=== PATIENT | male | born 1950 | race Caucasian/White ===

== ENCOUNTER 2023-10-15 12:23 | Outpatient (REF) | payer BC, SELFPAY ==
[2023-10-15 14:14] LABS: Anion Gap 13 (12-20); Blood Urea Nitrogen 26 mg/dL (9-16); Calcium 9.8 mg/dL (8.4-10.2); Carbon Dioxide 29 mmol/L (22-29); Chloride 101 mmol/L (96-108); Estimated Glomerular Filt Rate > 60; Glucose Random 93 mg/dL (60-115); Potassium 4.3 mmol/L (3.3-5.1); Sodium 139 mmol/L (135-145)
[2023-10-15 14:25] LABS: Syphilis Screen Nonreactive (Nonreactive)
[2023-10-15 14:40] LABS: Folate 13.3 ng/mL (> or = 4.0); Vitamin B12 543 pg/mL (200-900)
[2023-10-15 14:59] LABS: Erythrocyte Sedimentation Rate 7 MM/HR (0-15)
[2023-10-16 22:29] LABS: Lyme Abs Screen <0.90 index
[2023-10-18 11:48] LABS: IgA 149 mg/dL (70-320); IgG 1087 mg/dL (600-1540); IgM 79 mg/dL (50-300)
== END 2023-10-15 12:24 | disposition home or self-care (01) ==
LOC: HO.LAB 12:23
PROVIDERS: Visit Provider Psychiatry & Neurology Neurology
DX: G62.9 Polyneuropathy, unspecified (principal)
CPT/HCPCS: 36415; 80048; 82607; 82746; 82784; 85652; 86334; 86617; 86618; 86780

== ENCOUNTER 2023-11-04 09:35 | Emergency (ER) | payer BC, SELFPAY ==
[2023-11-04 09:57] VITALS: BP 151/85; PULSE 91; RESP 18; TEMP 36.6; O2SAT 95; BMI 29.8
[2023-11-04 10:22] LABS: Appearance Urine Clear; Color Urine Yellow; Glucose Urine UA Negative (Negative); Leukocyte Esterase Urine Small (1+) (Negative); Nitrite Urine Negative (Negative); Specific Gravity - Urine 1.015 (1.005-1.025); UMIC TRIGGER UACC YES; Urine Blood Trace (Negative); Urine Ketones Negative (Negative); Urine Protein Negative (Neg-Trace)
[2023-11-04 10:24] LABS: Bacteria Urine None Seen (None Seen); Hyaline Casts Urine 0-2 /LPF (0-2); Squamous Epithelial Cell Urine 0-2 /HPF (0-2); UACC Culture Trigger YES
[2023-11-04 10:56] LABS: Influenza A PCR NEGATIVE (Negative); Influenza B PCR NEGATIVE (Negative); Resp Syncy Virus RNA Qual PCR NEGATIVE (Negative); SARS COV2 PCR INHOUSE NEGATIVE (Negative)
--- NOTE | 2023-11-04 13:42 | ED.GENADULT ---
HPI - General Adult General Chief complaint: General Medical Stated complaint: Bladder infection Time Seen by Provider: 11/04/23 13:22 Source: patient and family () Mode of arrival: ambulatory Limitations: no limitations History of Present Illness HPI narrative: 73 year old male with no signfiicant pmhx presents to the ED today for evaluation of body aches, chills, and urinary frequency x2 days. No documented temperature at home. Has not taken anything at home for this. Reports similar symptoms in the past when he was diagnosed with a urinary tract infection. Denies fever, chills, ear pain, sore throat, difficulty swallowing. chest pain, shortness of breath, wheezing, hematuria, dysuria, abdominal pain or flank pain. Denies sick contacts. No history of kidney stones. No history of BPH. Related Data Previous Rx's Medication Instructions Recorded cephalexin 500 mg capsule 500 mg PO BID 7 days #14 caps 11/04/23 Allergies Allergy/AdvReac Type Severity Reaction Status Date / Time No Known Allergies Allergy Verified 11/04/23 09:56 Review of Systems Review of Systems: Constitutional: No fever, +chills, No fatigue, night sweats, weight changes ENT/Mouth: No ear pain, hearing loss, nasal congestion, sinus pain, rhinorrhea, sore throat Eyes: No eye pain, swelling, redness, vision changes, discharge Cardio: No chest pain, palpitations, LE, orthopnea, peripheral edema Pulm: No SOB, cough, sputum, wheezing, dyspnea, hemoptysis GI: No nausea, vomiting, hematemesis, abdominal pain, diarrhea, constipation, hematochezia, melena : No irregular bleeding, dysuria, +frequency, No urgency, hesitancy, hematuria, flank pain, urinary flow changes, urinary incontinence or retention MSK: No back pain, neck pain, joint pain, +myalgias Skin: No lesions, rashes Neuro: No weakness, numbness, paresthesias, LOC, dizziness, headache All other systems reviewed and are negative. [facility] Past Medical History Attestation statement: The following information was validated with the patient. Source: old records reviewed and nursing notes reviewed Social History Social History Advance Directives: No Advance Directives Information Provided: No Physical Exam ED Vital Signs: Vital Signs - 24 hr 11/04/23 09:57 Temperature 97.8 F Pulse Rate 91 Respiratory Rate 18 Blood Pressure 151/85 H Pulse Oximetry 95 Oxygen Delivery Method Room Air BMI result Body Mass Index 29.8 Vital signs stable, afebrile. Const General: cooperative, healthy appearing, comfortable, no acute distress, alert and awake Orientation/consciousness: patient oriented x3 Limitations: no limitations HENMT Head: Yes normal to inspection Ears: hearing grossly normal bilaterally, external ears normal, TM's normal bilaterally, EAC's normal, mastoids normal and no periauricular adenopathy General nose exam: Normal external nose present, Normal nares present and No nasal discharge present Face and sinus: Yes normal facial exam and Yes sinuses nontender Mouth: Normal oral and palatal mucosa present Eyes General: appearance normal, both eyes and all related structures Conjunctivae: conjunctivae normal Sclerae: sclerae normal Pupils: Equal, round and reactive pupils present EOM: EOMs intact bilaterally Neck Neck: Yes normal visual inspection, Yes full ROM, Yes no lymphadenopathy and Yes no meningeal signs Resp Effort & Inspection: normal respiratory effort Auscultation: clear to auscultation bilaterally Cardio Rate: regular rate Rhythm: regular rhythm GI Inspection: Yes normal to inspection Palpation (GI): Soft to palpation, nontender, no guarding and no splenomegaly Auscultation: normal bowel sounds Other: + no CVAT bilaterally Back/Spine/Pelvis Other: Strength 5/5 intact throughout.?No saddle anesthesia.?Sensation intact to light touch.?Neurovascular intact distally.? Skin General skin exam: no rashes or lesions noted Neuro General: patient oriented x3, gait normal, moves all extremities and no meningeal signs Cranial nerves: Yes Equal, round and reactive pupils present Extrem General: Yes normal to inspection and Yes full ROM Course Course Course Narrative: 1350-- patient tested negative for COVID, flu, RSV. Urine showing infection. Informed patient and patient's of results. Symptoms are most consistent with a urinary tract infection. There is no concern for obstructive uropathy or kidney infection at this time. Will send cephalexin to patient's pharmacy to treat UTI. Patient has remained stable throughout ED visit today. Discussed strict return precautions. All questions answered at this time. Patient is agreeable with disposition and stable for discharge. Medical Decision Making Medical Decision Making [facility] Narrative: 73 year old male with no signfiicant pmhx presents to the ED today for evaluation of body aches, chills, and urinary frequency x2 days. Vital signs stable. Afebrile. Patient is nontoxic appearing and in no acute distress. Abdomen soft, nondistended, nontender to palpation, no rebound tenderness or guarding, normoactive bowel sounds x4. No CVAT bilaterally. Bladder not palpable. Lungs CTA bilaterally. RRR. No cervical lymphadenopathy. Posterior oropharynx WNL. Bilateral EACs and TMs WNL. Clinical concern for viral syndrome, urinary tract infection. Unlikely bronchitis, pneumonia, pyelonephritis, nephrolithiasis, bladder carcinoma. Plan for serology and UA. Differential Diagnosis Differential Diagnoses: The differential diagnosis associated with the presentation includes As above. Admission/Observation Not indicated. Lab Data MDM Lab Attestation statement: I reviewed the patient's lab results. As above. Labs: Lab Results 11/04/23 Range/Units 10:05 Urine Color Yellow Urine Appearance Clear Urine pH 7.0 (5.0-9.0) Ur Specific [place] 1.015 (1.005-1.025) Urine Protein Negative (Neg-Trace) mg/dL Urine Glucose (UA) Negative (Negative) mg/dL Urine Ketones Negative (Negative) mg/dL Urine Blood Trace H (Negative) Urine Nitrite Negative (Negative) Ur Leukocyte Esterase Small (1+) H (Negative) Urine RBC 3-5 H (0-2) /HPF Urine WBC 6-10 H (0-5) /HPF Ur Squamous Epith Cells 0-2 (0-2) /HPF Urine Bacteria None Seen (None Seen) Hyaline Casts 0-2 (0-2) /LPF Influenza Type A (PCR) NEGATIVE (Negative) Influenza Type B (PCR) NEGATIVE (Negative) RSV RNA Qual (PCR) NEGATIVE (Negative) SARS-CoV-2 RNA (RT-PCR) NEGATIVE (Negative) Independent Historian Clinical information obtained from an independent historian. History obtained from or confirmed by: Spouse () External Record Review External record reviewed: Inpatient record Prescription Management I considered prescription management with: Antibiotic Critical Care Time Critical Care Time Critical Care Time: No Discharge Plan Discharge Clinical Impression: Urinary tract infection Patient Disposition: Home, Self-Care Instructions: Urinary Tract Infection in Men (ED) Additional Instructions: You tested negative for flu, RSV, COVID. Your urine was positive for infection. Cephalexin is antibiotic that has been sent to your pharmacy to treat this. Take this for the next 7 days as directed. Do not miss any doses or. This early as this may cause infection to return or worsen. You may take Tylenol and ibuprofen as needed for fevers or body aches. Please follow-up with your primary care provider. If symptoms persist or worsen please return to the emergency department. The case of an emergency call 911. On a cephalosporin antibiotic, softer bowel movements are to be expected. Call your provider if you move your bowels more than 4 times a day, your bowel movements are almost all liquid or if you get a rash. Prescriptions: New cephalexin 500 mg capsule 500 mg PO BID 7 Days Qty: 14 0RF Discharge Date/Time: 11/04/23 14:03
[2023-11-04 14:01] VITALS: BP 167/89; PULSE 76; RESP 18; O2SAT 98
== END 2023-11-04 14:03 | disposition home or self-care (01) ==
PROVIDERS: Emergency Provider Emergency Medicine; PCP Internal Medicine
DX: N39.0 Urinary tract infection, site not specified (principal); R35.0 Frequency of micturition; R68.83 Chills (without fever); R52 Pain, unspecified; Z20.822 Contact with and (suspected) exposure to COVID-19; Z20.828 Contact with and (suspected) exposure to other viral communicable diseases
CPT/HCPCS: 0241U; 81001; 87086; 99283

== ENCOUNTER 2023-11-26 09:27 | Day surgery (SDC) | payer BC, SELFPAY ==
--- NOTE | ~2023-11-26 | FL_ITS ---
FLUOROSCOPIC GUIDED LUMBAR PUNCTURE INDICATION: Peripheral neuropathy Risks and benefits and possible complications were discussed with the patient and the consent form was signed. Patient was placed prone on the fluoroscopy table. The back was prepped and draped in routine sterile fashion. Betadine was used as a skin antiseptic. Utilizing fluoroscopic guidance, the L3-4 level was accessed with a 22 gauge Regan spinal needle and clear CSF fluid obtained. Opening pressure was 20 cm. 8 cc of fluid was sent for analysis. Closing pressure was 5 cm H2O. The needle was removed without immediate complications. Total fluoroscopy time: 0.2 min FL/FL guided lumbar puncture LP IMPRESSION: Successful Fluoroscopic lumbar puncture This procedure was performed by Daniel Montero PA-C and supervised by Dr. Major.
[2023-11-26 10:34] VITALS: BMI 30.3
[2023-11-26 10:55] VITALS: BP 148/73; PULSE 90; RESP 18; TEMP 36.7; O2SAT 96
[2023-11-26 12:25] VITALS: BP 139/83; PULSE 73; RESP 16; TEMP 36.2; O2SAT 98
[2023-11-26 12:40] VITALS: BP 126/73; PULSE 72; RESP 16; O2SAT 98
[2023-11-26 12:55] VITALS: BP 126/71; PULSE 76; RESP 16; O2SAT 98
[2023-11-26 13:10] VITALS: BP 121/71; PULSE 74; RESP 14; O2SAT 99
[2023-11-26 13:25] VITALS: BP 130/81; PULSE 72; RESP 14; TEMP 36.2; O2SAT 99
[2023-11-27 07:45] LABS: Oligoclonal Serum Yes
[2023-12-01 18:04] LABS: Oligoclonal Banding Absent (Absent)
[2023-12-02 00:09] LABS: Albumin 3.9 g/dL (3.6-5.1); Albumin, CSF 47.8 mg/dL (8.0-42.0); IgG 977 mg/dL (600-1540); IgG Synthesis Rate -6.4 mg/24 h (-9.9-3.3); IgG, CSF 4.7 mg/dL (0.8-7.7)
== END 2023-11-26 13:33 | disposition home or self-care (01) ==
PROVIDERS: Student in an Organized Health Care Education/Training Program; PCP Internal Medicine; Visit Provider Psychiatry & Neurology Neurology
PROC: 009U3ZZ Drainage of Spinal Canal, Percutaneous Approach (ICD-10-PCS; CPT 62270; principal; 2023-11-26 11:00)
DX: G62.9 Polyneuropathy, unspecified (principal); Z79.899 Other long term (current) drug therapy; Z87.891 Personal history of nicotine dependence; Z98.890 Other specified postprocedural states
CPT/HCPCS: 36415; 62328; 82042; 82945; 83916; 84157; 85025; 85610; 85730; 87015; 87070; 87205; 89051

== ENCOUNTER → 2023-11-26 11:25 | Outpatient (BNV) | payer BC, SELFPAY | PROVIDERS: PCP Internal Medicine; Visit Provider Radiology Diagnostic Radiology | DX: G62.9 Polyneuropathy, unspecified (principal) | CPT/HCPCS: 62328 ==